=== PATIENT | female | born 1945 | race Caucasian/White ===

== ENCOUNTER 2018-06-27 08:31 | Day surgery (SDC) | payer MEDICARE, BC ==
[~2018-06-27] VITALS: Ht 152.4 cm; Wt 58.2 kg
[~2018-06-27 08:31] MED LIST: ALOG1TAB5 PO; ASPI-1265 PO; BENA10TA74 PO; CITA20TA28 PO; ERGO500014 PO; FENO145T38 PO; FERR325T28 PO; LIDOcaine Viscous 15ml cup ONE; MIDAZolam 5mg/5ml vial ONE; OMEP-84 PO; PRED10TA PO; ROSU20TA2 PO; SIN25C PO; WALK1EAC MC; [UNRECOGNIZED DRUG - OTHER] PO; bedside commode; fentaNYL/PF 50MCG/1 ML 2ML syringe ONE; oxygen; prenatal vitamin PO
[2018-06-27 08:38] VITALS: BP 133/73
[2018-06-27] MEDS ORDERED: LORA-641 PO (08:47)
[2018-06-27] MEDS ORDERED: GLIM4TAB79 PO (08:47)
[2018-06-27] MEDS ORDERED: LINA5TAB4 PO (08:48)
[2018-06-27] MEDS ORDERED: INSU100V9 SQ (08:49)
[2018-06-27] MEDS ORDERED: CALC-855 PO (08:49)
[2018-06-27] MEDS ORDERED: FLUT16SP11 (08:51)
[2018-06-27] MEDS ORDERED: LIRA0.6P SQ (08:52)
[2018-06-27] MEDS ORDERED: AMIT-189 PO (08:52)
[2018-06-27 09:22] VITALS: BP 121/60
[2018-06-27 09:27] VITALS: BP 123/77
[2018-06-27 09:37] VITALS: BP 124/55
[2018-06-27 09:47] VITALS: BP 127/78
== END 2018-06-27 09:51 | disposition home or self-care (01) ==
LOC: GI LAB 08:31
PROVIDERS: ATTEND Internal Medicine Gastroenterology
DX: K31.819 Angiodysplasia of stomach and duodenum without bleeding (principal); D50.9 Iron deficiency anemia, unspecified; E11.22 Type 2 diabetes mellitus with diabetic chronic kidney disease; N18.9 Chronic kidney disease, unspecified; I12.9 Hypertensive chronic kidney disease with stage 1 through stage 4 chronic kidney disease, or unspecified chronic kidney disease
CPT/HCPCS: 43255; 99152; J2250; J3010; J7030; 99153; A4620

== ENCOUNTER 2020-03-18 19:14 | Emergency (ER) | payer MEDICARE, BC ==
[~2020-03-18] VITALS: Ht 149.9 cm; Wt 50.0 kg
[~2020-03-18 19:14] MED LIST changes: -ALOG1TAB5 PO; +AMIT-189 PO; -ASPI-1265 PO; +CLON0.1T2 PO; -ERGO500014 PO; -FERR325T28 PO; +INSU100V9 SQ; -LIDOcaine Viscous 15ml cup ONE; +LINA5TAB4 PO; +METF-436 PO; +METO50TA16 PO; -MIDAZolam 5mg/5ml vial ONE; -PRED10TA PO; -SIN25C PO; +SUMA100T16 PO; -WALK1EAC MC; -[UNRECOGNIZED DRUG - OTHER] PO; -bedside commode; -fentaNYL/PF 50MCG/1 ML 2ML syringe ONE; -oxygen
[2020-03-18] MEDS ORDERED: proCHLORperazine 10 MG/2 ml inj IV ONE (20:20)
[2020-03-18] MEDS ORDERED: normal saline 1000ml 1,000 ML IV ONE ×2 (20:20→21:25)
[2020-03-18] MEDS ORDERED: ondansetron/PF 4mg/2ml inj IV ONE ×2 (20:20→23:15)
[2020-03-18] MEDS ORDERED: diphenhydrAMINE 50 mg/ml inj IV ONE (20:20)
[2020-03-18 20:28] LABS: BASOPHILS # (AUTO) 0.1 X10'3 (0-0.2); BASOPHILS % (AUTO) 0.5 % (0-1); EOSINOPHILS # (AUTO) 0.1 X10'3 (0-0.9); EOSINOPHILS % (AUTO) 1.3 % (0-6); HEMATOCRIT 35.8 % (35.0-45.0); HEMOGLOBIN 11.8 g/dl (12.0-16.0); LYMPHOCYTES % (AUTO) 27.7 % (21-51); MEAN CORPUSCULAR HGB CONC 32.9 g/dL (33.0-36.5); MEAN CORPUSCULAR VOLUME 97.3 FL (78-98); MEAN PLATELET VOLUME 7.7 FL (7.4-10.4); MONOCYTES # (AUTO) 0.5 X10'3 (0-0.9); MONOCYTES % (AUTO) 4.4 % (2-12); NEUTROPHILS # (AUTO) 7.2 X10'3 (1.8-7.7); NEUTROPHILS % (AUTO) 66.1 % (42-75); PLATELET COUNT 355 X10'3 (140-440); RED BLOOD COUNT 3.68 X10'6 (4.20-5.60); RED CELL DISTRIBUTION WIDTH 15.3 % (11.5-14.5); WHITE BLOOD COUNT 10.9 X10'3 (4.5-11.0)
[2020-03-18 20:42] LABS: ALANINE AMINOTRANSFERASE 39 U/L (12-78); ALBUMIN 3.7 G/DL (3.4-5.0); ALBUMIN/GLOBULIN RATIO 0.9 (1.1-1.5); ALKALINE PHOSPHATASE 54 IU/L (46-116); ANION GAP 15 (8-16); ASPARTATE AMINO TRANSFERASE 55 U/L (10-37); BILIRUBIN,TOTAL 0.4 MG/DL (0.1-1.0); BLOOD UREA NITROGEN 29 MG/DL (7-18); BUN/CREATININE RATIO 20.9 (6.6-38.0); CALCIUM 9.8 MG/DL (8.5-10.1); CHLORIDE 103 MMOL/L (99-107); CREATININE 1.39 MG/DL (0.40-0.90); GLUCOSE 228 MG/DL (70-104); LIPASE 202 U/L (73-393); POTASSIUM 3.8 MMOL/L (3.5-5.1); SODIUM 139 MMOL/L (135-145); TOTAL CARBON DIOXIDE 21.2 MMOL/L (24-32); TOTAL PROTEIN 7.9 G/DL (6.4-8.2); eGFR 37 ML/MIN
--- NOTE | 2020-03-18 21:04 | NUR ---
PT'S DAUGHTER IS AT BEDSIDE DUE TO PT BEING CONFUSED. DAUGHTER STATES THAT MOTHER IS NOT CONFUSED NORMALLY. PT IS ALSO HAVING TROUBLE SEEING. SAKSHI BECKER WAS MADE AWARE AND IS ORDERING A HEAD CT.
[2020-03-18 21:13] LABS: CLARITY,URINE CLEAR (Clear); COLOR,URINE YELLOW (Yellow); GLUCOSE, URINE 250 mg/dl (Neg); KETONES,URINE NEGATIVE (Neg); LEUKOCYTE ESTERASE ,URINE TRACE (Neg); NITRITES, URINE NEGATIVE (Neg); OCCULT BLOOD,URINE NEGATIVE (Neg); PH,URINE 7.5 (4.8-8.0); PROTEIN,URINE 100 mg/dl (Neg); UROBILINOGEN,URINE 0.2 E.U/dL (0.2-1.0)
[2020-03-18 21:17] LABS: UA COLLECTION TYPE CLN CATCH MIDSTREAM
[2020-03-18 21:18] LABS: BACTERIA,URINE FEW /HPF (Neg); RBC,URINE NONE SEEN /HPF (0-2); SQUAMOUS EPITHELIAL CELL,UR FEW /LPF (FEW)
[2020-03-18 21:56] LABS: MAGNESIUM 1.2 MG/DL (1.5-2.4); TROPONIN I < 0.04 NG/ML (0.0-0.05)
[2020-03-18] MEDS ORDERED: CefTRIAXone/D5W-Rocephin 1gm 50 ML IV ONE (22:15)
[2020-03-18] MEDS ORDERED: ONDA4TAB6 PO (23:28)
[2020-03-19 00:07] VITALS: BP 166/63
== END 2020-03-19 00:09 | disposition home or self-care (01) ==
LOC: ER 19:15
DX: R11.2 Nausea with vomiting, unspecified (principal); R51.9 Headache, unspecified; R00.0 Tachycardia, unspecified; K21.9 Gastro-esophageal reflux disease without esophagitis; I12.9 Hypertensive chronic kidney disease with stage 1 through stage 4 chronic kidney disease, or unspecified chronic kidney disease; E11.22 Type 2 diabetes mellitus with diabetic chronic kidney disease; N18.9 Chronic kidney disease, unspecified; Z86.2 Personal history of diseases of the blood and blood-forming organs and certain disorders involving the immune mechanism; Z85.3 Personal history of malignant neoplasm of breast; Z98.890 Other specified postprocedural states; Z79.4 Long term (current) use of insulin; Z79.899 Other long term (current) drug therapy
CPT/HCPCS: 36415; 70450; 80053; 81001; 82948; 83690; 83735; 84484; 85025; 87088; 93005; 96365; 96375; 96376; 99285; J0696; J0780; J1200; J2405; J7030

== ENCOUNTER 2020-07-19 10:34 | Observation (INO) | payer MEDICARE, BC ==
[~2020-07-19] VITALS: Ht 149.9 cm; Wt 51.8 kg
[~2020-07-19 10:34] MED LIST changes: +ONDA4TAB6 PO
[2020-07-19] MEDS ORDERED: aspirin 81mg tab.chew PO ONE (10:45)
--- NOTE | 2020-07-19 10:48 | NUR ---
[id number]
[2020-07-19] MEDS ORDERED: iohexol 350MG/ML 100ml bottle IV ONE (10:50)
[2020-07-19] MEDS: MESSAGE TO NURSING PO SCH (11:00)
--- NOTE | 2020-07-19 11:00 | NUR ---
TO CT SCAN PER WC, ON MONITOR AND ACCOMPANIED BY PRIMARY NURSE.
--- NOTE | 2020-07-19 11:20 | NUR ---
IV STARTED IN CT SCAN FOR CTA STUDY. #20 ANGIO STARTED IN RIGHT FA AFTER 3 ATTEMPTS.
--- NOTE | 2020-07-19 11:23 | NUR ---
[id number]
--- NOTE | 2020-07-19 11:35 | NUR ---
PATIENT IN ROOM. STROKE NURSE AT THE BEDSIDE. AWAITING TELENEUROLOGIST EVALUATION.
[2020-07-19 11:53] LABS: BASOPHILS % (AUTO) 0.2 % (0-1); EOSINOPHILS # (AUTO) 0.1 X10'3 (0-0.9); EOSINOPHILS % (AUTO) 0.9 % (0-6); HEMATOCRIT 31.7 % (35.0-45.0); HEMOGLOBIN 10.6 g/dl (12.0-16.0); LYMPHOCYTES # (AUTO) 1.9 X10'3 (1.1-4.8); LYMPHOCYTES % (AUTO) 18.9 % (21-51); MEAN CORPUSCULAR HEMOGLOBIN 33.4 PG (27.0-31.0); MEAN CORPUSCULAR HGB CONC 33.6 g/dL (33.0-36.5); MEAN CORPUSCULAR VOLUME 99.6 FL (78-98); MONOCYTES # (AUTO) 0.4 X10'3 (0-0.9); MONOCYTES % (AUTO) 4.3 % (2-12); NEUTROPHILS # (AUTO) 7.6 X10'3 (1.8-7.7); NEUTROPHILS % (AUTO) 75.7 % (42-75); PLATELET COUNT 271 X10'3 (140-440); RED BLOOD COUNT 3.18 X10'6 (4.20-5.60); RED CELL DISTRIBUTION WIDTH 14.9 % (11.5-14.5)
[2020-07-19 12:04] LABS: ALANINE AMINOTRANSFERASE 32 U/L (12-78); ALBUMIN 2.9 G/DL (3.4-5.0); ALBUMIN/GLOBULIN RATIO 0.9 (1.1-1.5); ALKALINE PHOSPHATASE 58 IU/L (46-116); ANION GAP 8 (8-16); ASPARTATE AMINO TRANSFERASE 41 U/L (10-37); BILIRUBIN,TOTAL 0.3 MG/DL (0.1-1.0); BLOOD UREA NITROGEN 34 MG/DL (7-18); BUN/CREATININE RATIO 19.5 (6.6-38.0); CALCIUM 8.8 MG/DL (8.5-10.1); CHLORIDE 104 MMOL/L (99-107); CREATININE 1.74 MG/DL (0.40-0.90); GLUCOSE 169 MG/DL (70-104); POTASSIUM 5.1 MMOL/L (3.5-5.1); SODIUM 137 MMOL/L (135-145); TOTAL CARBON DIOXIDE 24.9 MMOL/L (24-32); TOTAL PROTEIN 6.3 G/DL (6.4-8.2); eGFR 29 ML/MIN
[2020-07-19] MEDS ORDERED: ondansetron/PF 4mg/2ml inj IV PRN (12:50)
[2020-07-19] MEDS ORDERED: magnesium hydroxide 30ml (MOM) UD suspension PO PRN (12:50)
[2020-07-19] MEDS ORDERED: mag hydrox/Alum hydrox/simeth 30ml oral suspension PO PRN (12:50)
[2020-07-19] MEDS ORDERED: acetaminophen 325mg tablet PO PRN (12:50)
--- NOTE | 2020-07-19 13:06 | NUR ---
ECHOCARDIOGRAM AT THE BEDSIDE PERFORMING STUDY.
[2020-07-19 14:30] VITALS: BP 171/44
--- NOTE | 2020-07-19 14:30 | NUR ---
Patient in room [facility]THO 4014B. I have received report from KORTNEY MARKS in ED and had the opportunity to ask questions and assume patient care. Pt arrived to floor at 1410 from MRI
[2020-07-19 15:23] LABS: CHOL/HDL RATIO 6.3 (0.00-4.99); CHOLESTEROL 125 MG/DL (0-200); HDL CHOLESTEROL 20 MG/DL (35-60); LDL CHOLESTEROL 53 MG/DL (50-100); TRIGLYCERIDES 364 MG/DL (20-135)
[2020-07-19] MEDS: normal saline 1000ml 1,000 ML IV SCH (15:33)
[2020-07-19] MEDS ORDERED: ondansetron 4mg rapidly disintigrating tab PO PRN (17:05)
[2020-07-19] MEDS: lisinopril 20mg tablet PO SCH (17:49)
[2020-07-19] MEDS: cloNIDine 0.1 mg tablet PO SCH (17:49)
[2020-07-19 18:00] VITALS: BP 184/61
--- NOTE | 2020-07-19 18:37 | NUR ---
Problems reprioritized. Patient report given, questions answered & plan of care reviewed with KORTNEY BECKER.
--- NOTE | 2020-07-19 20:54 | NUR ---
MESSAGE: [id number] ASIF PEARSON 75 R/O STROKE IS REQUESTING SLEEP AID. ALSO 4014G FAVIO GOMES 48 CLAVICAL FX. POTASSIUM IS 3.4. SHOULD HE BE ON REPLACEMENT PROTOCOL? THANK YOU FROM [id number]
[2020-07-19] MEDS ORDERED: atorvastatin 20mg tablet PO SCH (21:00)
[2020-07-19] MEDS ORDERED: amitriptyline 50mg tablet PO SCH (21:00)
[2020-07-19] MEDS ORDERED: fenofibrate 145mg tablet PO SCH (21:00)
[2020-07-19] MEDS ORDERED: linagliptin 5mg tablet PO SCH (21:00)
[2020-07-19] MEDS: heparin, porcine 5000 units/ml vial SQ SCH (21:04)
[2020-07-19] MEDS: metoprolol tartrate 50mg tablet PO SCH (21:07)
[2020-07-19] MEDS ORDERED: temazepam 15mg capsule PO ONE (21:10)
[2020-07-19 22:00] VITALS: BP 130/59
[2020-07-20] MEDS: normal saline 1000ml 1,000 ML IV SCH ×2 (01:40→08:50)
[2020-07-20 06:00] VITALS: BP 148/45
[2020-07-20 06:07] LABS: ALBUMIN 2.5 G/DL (3.4-5.0); ANION GAP 10 (8-16); BLOOD UREA NITROGEN 27 MG/DL (7-18); BUN/CREATININE RATIO 19.3 (6.6-38.0); CALCIUM 8.3 MG/DL (8.5-10.1); CHLORIDE 109 MMOL/L (99-107); GLUCOSE 116 MG/DL (70-104); POTASSIUM 4.2 MMOL/L (3.5-5.1); SODIUM 142 MMOL/L (135-145); TOTAL CARBON DIOXIDE 22.9 MMOL/L (24-32); eGFR 37 ML/MIN
--- NOTE | 2020-07-20 06:19 | NUR ---
Problems reprioritized. Patient report given, questions answered & plan of care reviewed with KORTNEY HOPE.
--- NOTE | 2020-07-20 06:39 | NUR ---
Patient in room ORTHO 4014B. I have received report from KORTNEY BECKER and had the opportunity to ask questions and assume patient care.
[2020-07-20 06:59] LABS: BASOPHILS % (AUTO) 0.6 % (0-1); EOSINOPHILS # (AUTO) 0.1 X10'3 (0-0.9); HEMATOCRIT 29.9 % (35.0-45.0); HEMOGLOBIN 9.8 g/dl (12.0-16.0); LYMPHOCYTES # (AUTO) 2.6 X10'3 (1.1-4.8); LYMPHOCYTES % (AUTO) 29.8 % (21-51); MEAN CORPUSCULAR HEMOGLOBIN 33.6 PG (27.0-31.0); MEAN CORPUSCULAR HGB CONC 32.8 g/dL (33.0-36.5); MEAN CORPUSCULAR VOLUME 102.3 FL (78-98); MEAN PLATELET VOLUME 8.2 FL (7.4-10.4); MONOCYTES # (AUTO) 0.4 X10'3 (0-0.9); MONOCYTES % (AUTO) 4.4 % (2-12); NEUTROPHILS # (AUTO) 5.5 X10'3 (1.8-7.7); NEUTROPHILS % (AUTO) 64.2 % (42-75); PLATELET COUNT 227 X10'3 (140-440); RED BLOOD COUNT 2.92 X10'6 (4.20-5.60); RED CELL DISTRIBUTION WIDTH 14.8 % (11.5-14.5); WHITE BLOOD COUNT 8.6 X10'3 (4.5-11.0)
[2020-07-20] MEDS ORDERED: pantoprazole 40mg Tablet.DR PO SCH (07:30)
[2020-07-20] MEDS: metoprolol tartrate 50mg tablet PO SCH (07:56)
[2020-07-20] MEDS: cloNIDine 0.1 mg tablet PO SCH (07:57)
[2020-07-20] MEDS: lisinopril 20mg tablet PO SCH (07:58)
[2020-07-20] MEDS: heparin, porcine 5000 units/ml vial SQ SCH (07:59)
[2020-07-20] MEDS ORDERED: citalopram 20mg tablet PO SCH (08:00)
[2020-07-20] MEDS ORDERED: aspirin 81mg tablet.DR PO SCH (08:00)
[2020-07-20] MEDS ORDERED: multivitamins, therapeutics tablet PO SCH (08:00)
[2020-07-20 10:00] VITALS: BP 176/49
[2020-07-20] MEDS: MESSAGE TO NURSING PO SCH (11:00)
[2020-07-20] MEDS ORDERED: ASPI81TA52 PO (12:38)
--- NOTE | 2020-07-20 14:12 | NUR ---
D/C INSTRUCTIONS GIVEN, QUESTIONS ANSWERED. BELONGINGS GATHERED BY AND SENT WITH PT. IV D/C'D, CANNULA INTACT, NO COMPLICATIONS. D/C'D PT IN STABLE CONDITION TO HOME IN PRIVATE VEHICLE ACCOMPANIED BY DAUGHTER. PT LEFT FLOOR AT 1405
== END 2020-07-20 14:05 | disposition home or self-care (01) ==
LOC: ER 10:35 → ORTHO 4S 12:49 → UNDOADMOB 07-20 01:32 → ORTHO 4S 07-20 01:32
PROVIDERS: ADMIT Family Medicine; ATTEND Family Medicine
DX: G45.9 Transient cerebral ischemic attack, unspecified (principal); I12.9 Hypertensive chronic kidney disease with stage 1 through stage 4 chronic kidney disease, or unspecified chronic kidney disease; E11.22 Type 2 diabetes mellitus with diabetic chronic kidney disease; N18.9 Chronic kidney disease, unspecified; E78.5 Hyperlipidemia, unspecified; I65.23 Occlusion and stenosis of bilateral carotid arteries; K21.9 Gastro-esophageal reflux disease without esophagitis; G43.909 Migraine, unspecified, not intractable, without status migrainosus; Z85.3 Personal history of malignant neoplasm of breast; Z79.82 Long term (current) use of aspirin; Z79.899 Other long term (current) drug therapy
CPT/HCPCS: 36415; 70450; 70496; 70498; 70544; 70551; 71045; 80048; 80053; 80061; 82948; 84484; 85025; 86885; 86900; 86901; 87081; 93005; 93306; 93880; 96360; 96361; 96372; 99285; G0378; J1644; J7030; Q9967

== ENCOUNTER 2022-01-06 06:10 | Day surgery (SDC) | payer MEDICARE, BC ==
[2022-01-05 15:12] LABS: BASOPHILS # (AUTO) 0.1 X10'3 (0-0.2); BASOPHILS % (AUTO) 1.3 % (0-1); EOSINOPHILS # (AUTO) 0.2 X10'3 (0-0.9); HEMATOCRIT 28.5 % (35.0-45.0); HEMOGLOBIN 9.4 g/dl (12.0-16.0); LYMPHOCYTES # (AUTO) 1.9 X10'3 (1.1-4.8); LYMPHOCYTES % (AUTO) 37.5 % (21-51); MEAN CORPUSCULAR HEMOGLOBIN 33.2 PG (27.0-31.0); MEAN CORPUSCULAR VOLUME 100.6 FL (78-98); MONOCYTES # (AUTO) 0.3 X10'3 (0-0.9); MONOCYTES % (AUTO) 5.7 % (2-12); NEUTROPHILS # (AUTO) 2.6 X10'3 (1.8-7.7); NEUTROPHILS % (AUTO) 52.5 % (42-75); PLATELET COUNT 292 X10'3 (140-440); RED BLOOD COUNT 2.83 X10'6 (4.20-5.60); RED CELL DISTRIBUTION WIDTH 15.3 % (11.5-14.5)
[2022-01-05 15:22] LABS: ANION GAP 6 (8-16); BLOOD UREA NITROGEN 55 MG/DL (7-18); BUN/CREATININE RATIO 24.9 (6.6-38.0); CALCIUM 9.4 MG/DL (8.5-10.1); CHLORIDE 108 MMOL/L (99-107); CREATININE 2.21 MG/DL (0.40-0.90); GLUCOSE 265 MG/DL (70-104); POTASSIUM 5.3 MMOL/L (3.5-5.1); SODIUM 138 MMOL/L (135-145); TOTAL CARBON DIOXIDE 23.7 MMOL/L (24-32); eGFR 22 ML/MIN
[2022-01-05 15:26] LABS: APTT 26 SECONDS (22-32)
[2022-01-06] VITALS (10 sets, daily range): BP systolic 101–151; BP diastolic 29–52
[~2022-01-06] VITALS: Ht 149.9 cm; Wt 53.8 kg
[~2022-01-06 06:10] MED LIST changes: -AMIT-189 PO; +AMIT50TA15 PO; -INSU100V9 SQ; -SUMA100T16 PO
[2022-01-06] MEDS ORDERED: ceFAZolin inj. 2,000 MG in dextrose 5%-water 100 ML IV ONE (06:36)
[2022-01-06] MEDS ORDERED: normal saline 1000ml 1,000 ML IV SCH (06:36)
[2022-01-06] MEDS ORDERED: CHLO25TA10 PO (06:39)
[2022-01-06] MEDS ORDERED: SUCR1ORA15 PO (06:48)
[2022-01-06] MEDS ORDERED: EMPA25TA PO (06:49)
[2022-01-06] MEDS ORDERED: BENA20TA83 PO (06:49)
[2022-01-06] MEDS ORDERED: LORA-641 PO (06:51)
[2022-01-06] MEDS ORDERED: vitamin d3 PO (06:52)
[2022-01-06] MEDS ORDERED: OSC500T PO (06:53)
[2022-01-06] MEDS ORDERED: Fluticasone (06:54)
[2022-01-06] MEDS ORDERED: fentaNYL/PF 50MCG/1 ML 2ML syringe ONE (07:24)
[2022-01-06] MEDS ORDERED: midazolam 1 mg/ML 2ml injection ONE (07:24)
[2022-01-06] MEDS ORDERED: LIDOCAINE 2% w/EPI 1:100:000 30mL injection MDV**cath lab 1 only ONE (07:25)
[2022-01-06] MEDS ORDERED: ceFAZolin 1000mg inj ONE (07:26)
[2022-01-06] MEDS ORDERED: HYDROcodone/acetaminophen 10/325mg tab PO PRN (10:25)
[2022-01-06] MEDS ORDERED: HYDROcodone/acetaminophen 5mg/325mg tablet PO PRN (10:25)
[2022-01-06] MEDS ORDERED: vancomycin/NS 1 GM ADD-VANTAGE 250 ML X 1 DOSE IV ONE (10:25)
== END 2022-01-06 16:05 | disposition home or self-care (01) ==
LOC: SSTAY O 06:10
PROVIDERS: ATTEND Internal Medicine Cardiovascular Disease
DX: I49.5 Sick sinus syndrome (principal); E11.9 Type 2 diabetes mellitus without complications; I10 Essential (primary) hypertension; E78.5 Hyperlipidemia, unspecified; Z95.0 Presence of cardiac pacemaker; Z90.10 Acquired absence of unspecified breast and nipple; Z79.899 Other long term (current) drug therapy; Z98.890 Other specified postprocedural states; Z79.01 Long term (current) use of anticoagulants; Z83.3 Family history of diabetes mellitus; Z82.49 Family history of ischemic heart disease and other diseases of the circulatory system; Z88.8 Allergy status to other drugs, medicaments and biological substances
CPT/HCPCS: 33208; 36415; 71046; 80048; 82948; 85025; 85610; 85730; 93005; 99152; 99153; C1785; C1894; C1898; J0690; J2250; J3010; J3370; J3490; J7030; A4565; A4615; A6258; A6449